=== PATIENT | female | born 1950 | race Caucasian/White ===

== ENCOUNTER → 2017-01-09 | Outpatient (CLI) | payer OTHER ==
[~2017-01-09] MED LIST: ALLEGRA180 MG PO; OCEAN45 ML; SYNTHROID0.05 MG PO
--- NOTE | ~2017-01-09 | MY29 ---
[facility] A Service of [facility] RADIOLOGY TEXT RESULTS PATIENT: SHER CENTENO LOCATION: [facility] : 52 UNIT #: [id number] AGE: [address]: AIDAN BARILLAS SEX: F ORDER DR: [id number] [facility] [address] [place], [place] [address] [id number] O MR#: [id number] Acc #: [id number] NAME: SHER CENTENO : 1950 SEX: F STUDY DATE/TIME: 01/09/2017 11:00 UNIT: [facility] ROOM: STUDY DESCRIPTION: MY KELBY SCREENING W/ CAD BILAT Attending Physician: Aidan Barillas M.D. Referring Physician: Aidan Barillas M.D. Primary Care Physician: Aidan Barillas M.D. MEDICAL IMAGING REPORT This report is preliminary unless electronic signature is present EXAM Digital screening mammogram 01/09/2017 HISTORY 66-year-old woman no risk elevation. Baseline mammogram. COMPARISON None. FINDINGS Digital imaging of each breast was completed utilizing a two-view examination of each breast in craniocaudal and mediolateral-oblique projections. Review and interpretation of digital mammograms include a second review in conjunction with FDA-approved CAD device. There is a normal parenchymal presentation bilaterally consistent with the patient's age. There are no breast masses imaged and no parenchymal asymmetry is visualized. There are no suspicious microcalcifications and I see no focal architectural disturbance. IMPRESSION Negative screening digital mammogram. One-year followup recommended. Patients over the age of 40 are entered into a reminder system with target due date for the next mammogram. A result letter will also be sent to the patient. BIRADS: 1 Negative Dictated by... Jackson Fuller M.D. [facility] A Service [facility] RADIOLOGY TEXT RESULTS PATIENT: SHER CENTENO LOCATION: [facility] : 52 UNIT #: [id number] AGE: [address]: AIDAN BARILLAS SEX: F ORDER DR: THIS IS AN ELECTRONICALLY VERIFIED REPORT Jackson Fuller M.D. at 01/09/2017 2:19 PM CHANDRIKA/kumar TD: 01/09/2017 13:57 JOB #: [id number] MEDICAL IMAGING REPORT Page 1 of 1 COPY
--- NOTE | ~2017-01-09 | BD1 ---
[facility] A Service of [facility] RADIOLOGY TEXT RESULTS PATIENT: SHER CENTENO LOCATION: [facility] : 52 UNIT #: [id number] AGE: [address]: AIDAN BARILLAS SEX: F ORDER DR: [id number] [facility] [address] [place], [place] [address] [id number] O MR#: [id number] Acc #: [id number] NAME: SHER CENTENO : 1950 SEX: F STUDY DATE/TIME: 01/09/2017 10:43 UNIT: [facility] ROOM: STUDY DESCRIPTION: BD Dexa Bone Dens 1+ Site Attending Physician: Aidan Barillas M.D. Referring Physician: Aidan Barillas M.D. Primary Care Physician: Aidan Barillas M.D. MEDICAL IMAGING REPORT This report is preliminary unless electronic signature is present EXAM DXA scan, 01/09/2017. HISTORY Status post menopause with no hormone replacement therapy. Osteopenia. Hysterectomy. Arthritis. Hypertension with blood pressure medication for 3 months. Thyroid medication for 3 months. FINDINGS Bone mineral density in the lumbar spine from L1-L4 is 1.358 g/cm2 which is 2.8 standard deviations above the mean when compared to the young adult reference population which is within the range of normal. This is 4.6 standard deviations above the mean when compared to the age-matched population. Bone mineral density in the left femoral neck was 0.753 g/cm2 which is 0.9 standard deviations below the mean when compared to the young adult reference population which is within the range of normal. This is 0.7 standard deviations above the mean when compared to the age-matched population. IMPRESSION Bone mineral density in the lumbar spine and left hip within the range of normal. Dictated by... Jayson Castanon M.D. THIS IS AN ELECTRONICALLY VERIFIED REPORT Jayson Castanon M.D. at 01/10/2017 7:14 AM KRT/tmw [facility] A Service of [facility] RADIOLOGY TEXT RESULTS PATIENT: SHER CENTENO LOCATION: [facility] #: [id number] : 52 UNIT #: [id number] AGE: [address]: AIDAN BARILLAS SEX: F ORDER DR: TD: 01/09/2017 14:13 JOB #: [id number] MEDICAL IMAGING REPORT Page 1 of 1 COPY
== END | disposition home or self-care (01) ==
LOC: CWCC 10:20
DX: Z12.31 Encounter for screening mammogram for malignant neoplasm of breast (principal); N95.9 Unspecified menopausal and perimenopausal disorder; Z88.8 Allergy status to other drugs, medicaments and biological substances; Z88.1 Allergy status to other antibiotic agents
CPT/HCPCS: 77080; G0202